=== PATIENT | female | born 1950 | race Caucasian/White ===

== ENCOUNTER 2017-03-17 08:48 | Emergency (ER) | payer OTHER, BC ==
[~2017-03-17] VITALS: Ht 167.6 cm; Wt 66.0 kg
[2017-03-17 09:36] LABS: HEMATOCRIT 43.5 % (36.0-46.0); MCH 29.4 PG (29.0-34.0); MCHC 33.3 G/DL (30.0-36.0); MCV 88.2 FL (83-99); MEAN PLAT.VOLUME 10.2 uM^3 (9.5-12.4); PLATELET COUNT 208 K/uL (156-360); RBC DIS.WIDTH-CV 13.8 % (11.8-14.6); RBC DIS.WIDTH-SD 44.7 % (39-53); RED BLOOD COUNT 4.93 M/uL (3.80-5.20); WHITE BLOOD COUNT 5.7 K/uL (4.1-10.2)
[2017-03-17 09:49] LABS: CHLORIDE 108 mEq/L (99-109); POTASSIUM 4.6 mEq/L (3.7-5.4); SODIUM 143 mEq/L (136-147)
[2017-03-17 09:51] LABS: GLUCOSE 96 mg/dL (70-99)
[2017-03-17 09:52] LABS: ANION GAP 10 MEQ/L (2-14)
[2017-03-17 09:55] LABS: GFR ESTIMATE (CALCULATED) > 59 mL/min/; UREA NITROGEN (BUN) 16 mg/dL (9-23)
[2017-03-17 09:58] LABS: TROP-I INTERPRETATION NEGATIVE; TROPONIN-I < 0.01 ng/mL (0.0-0.30)
[2017-03-17 11:56] LABS: TROP-I INTERPRETATION NEGATIVE; TROPONIN-I < 0.01 ng/mL (0.0-0.30)
[2017-03-17 12:31] VITALS: BP 136/73
== END 2017-03-17 12:32 | disposition home or self-care (01) ==
LOC: EME 08:48
PROVIDERS: Emergency Medicine
DX: R07.89 Other chest pain (principal); Z87.891 Personal history of nicotine dependence
CPT/HCPCS: 71020; 80048; 84484; 85027; 93005; 99281; 99284

== ENCOUNTER 2017-05-10 07:41 | Emergency (ER) | payer OTHER, BC ==
[~2017-05-10] VITALS: Ht 167.6 cm; Wt 66.5 kg
[2017-05-10 08:27] LABS: EOSINOPHIL (%) 0.9 % (0-5); EOSINOPHIL COUNT 0.1 K/uL (0-0.3); HEMATOCRIT 41.8 % (36.0-46.0); IMMATURE GRANULOCYTE (%) 0.6 % (0.0-0.7); IMMATURE GRANULOCYTE COUNT 0.1 K/uL; INSTRUMENT ABS NEUTROPHIL CT 5.3 K/uL; LYMPHOCYTE COUNT 1.9 K/uL (1.0-2.8); MCHC 34.2 G/DL (30.0-36.0); MCV 84.8 FL (83-99); MEAN PLAT.VOLUME 9.7 uM^3 (9.5-12.4); MONOCYTE (%) 8.5 % (3-12); MONOCYTE COUNT 0.7 K/uL (0-0.8); NEUTROPHIL (%) 66.3 % (45-76); NEUTROPHIL COUNT 5.3 K/uL (1.8-6.4); PLATELET COUNT 240 K/uL (156-360); RBC DIS.WIDTH-CV 13.4 % (11.8-14.6); RBC DIS.WIDTH-SD 41.9 % (39-53); RED BLOOD COUNT 4.93 M/uL (3.80-5.20)
[2017-05-10 08:34] LABS: PROTHROMBIN TIME 10.5 SEC (10.2-12.9)
[2017-05-10 08:37] LABS: PTT 22.4 SEC (25-37)
[2017-05-10 08:56] LABS: ADD MIUA? YES; BILIRUBIN NEGATIVE; BLOOD NEGATIVE; COLOR YELLOW ((YELLOW)); GLUCOSE (STRIP) NEGATIVE; KETONES NEGATIVE; LEUKOCYTES SMALL; NITRITE NEGATIVE; PROTEIN (STRIP) 30; SPECIFIC GRAVITY 1.018 (1.000-1.030); UROBILINOGEN 0.2 MG/DL (0.2-1.0)
[2017-05-10 09:10] LABS: ALKALINE PHOSPHATASE 62 IU/L (3-129); ANION GAP 9 MEQ/L (2-14); CHLORIDE 107 MEQ/L (99-109); DIRECT BILIRUBIN 0.1 mg/dL (0.0-0.3); GFR ESTIMATE (CALCULATED) > 59 mL/min/; GLUCOSE 95 mg/dL (70-99); LIPASE 116 U/L (1.0-51.0); POTASSIUM 3.9 MEQ/L (3.7-5.4); SAMPLE HEMOLYSIS CHECK 0; SAMPLE ICTERIC CHECK 0; SAMPLE LIPEMIA CHECK 0; SODIUM 140 MEQ/L (136-147); TOTAL BILIRUBIN 0.7 MG/DL (0.0-1.0); UREA NITROGEN (BUN) 23 mg/dL (9-23)
[2017-05-10 09:11] LABS: TROP-I INTERPRETATION NEGATIVE; TROPONIN-I < 0.01 ng/mL (0.0-0.30)
[2017-05-10 09:19] LABS: BACTERIA RARE /HPF; EPITHELIAL CELLS RARE /HPF; MUCUS TRACE /LPF; RED BLOOD CELLS 0-5 /HPF (0-5); UCUL ADDED? YES
[2017-05-10] MEDS ORDERED: MIRALAX119 GM PO (10:21)
[2017-05-10] MEDS ORDERED: COLACE100 MG PO (10:21)
[2017-05-10 11:33] VITALS: BP 122/80
== END 2017-05-10 11:34 | disposition home or self-care (01) ==
LOC: EME 07:41
PROVIDERS: Emergency Medicine
DX: R10.32 Left lower quadrant pain (principal); K59.00 Constipation, unspecified; Z87.891 Personal history of nicotine dependence
CPT/HCPCS: 74177; 80048; 80076; 81003; 83605; 83690; 84484; 85025; 85610; 85730; 87086; 99281; 99284; J7030

== ENCOUNTER 2017-08-12 10:10 | Emergency (ER) | payer OTHER, BC ==
[~2017-08-12] VITALS: Ht 167.6 cm; Wt 70.9 kg
[~2017-08-12 10:10] MED LIST: COLACE100 MG PO; MIRALAX119 GM PO
[2017-08-12] MEDS ORDERED: VITAMIN D31000 UNI2 PO (10:52)
[2017-08-12] MEDS ORDERED: GLUCOSAMINE &1 EAC1 PO ×2 (10:53→10:54)
[2017-08-12] MEDS ORDERED: CALCIUM 500-VI1 EAC1 PO (10:53)
[2017-08-12] MEDS ORDERED: FISH OIL 1,2001 EAC3 PO (10:53)
[2017-08-12] MEDS ORDERED: FOSAMAX5 MG PO (10:55)
[2017-08-12] MEDS ORDERED: RANITIDINE HCL75 MG PO (10:55)
[2017-08-12] MEDS ORDERED: ASPIR 8181 M1 PO (10:56)
[2017-08-12] MEDS ORDERED: FOSAMAX70 MG PO (10:57)
[2017-08-12 11:56] LABS: EOSINOPHIL (%) 1.2 % (0-5); EOSINOPHIL COUNT 0.1 K/uL (0-0.3); HEMATOCRIT 40.5 % (36.0-46.0); IMMATURE GRANULOCYTE (%) 0.3 % (0.0-0.7); LYMPHOCYTE COUNT 1.1 K/uL (1.0-2.8); MCH 29.1 PG (29.0-34.0); MCHC 33.1 G/DL (30.0-36.0); MCV 87.9 FL (83-99); MEAN PLAT.VOLUME 10.1 uM^3 (9.5-12.4); MONOCYTE (%) 9.1 % (3-12); MONOCYTE COUNT 0.5 K/uL (0-0.8); NEUTROPHIL (%) 69.9 % (45-76); PLATELET COUNT 220 K/uL (156-360); RBC DIS.WIDTH-CV 13.3 % (11.8-14.6); RED BLOOD COUNT 4.61 M/uL (3.80-5.20); WHITE BLOOD COUNT 5.7 K/uL (4.1-10.2)
[2017-08-12 12:07] LABS: CHLORIDE 107 mEq/L (99-109); POTASSIUM 4.3 mEq/L (3.7-5.4); SODIUM 141 mEq/L (136-147)
[2017-08-12 12:08] LABS: GLUCOSE 94 mg/dL (70-99)
[2017-08-12 12:10] LABS: ANION GAP 10 MEQ/L (2-14)
[2017-08-12 12:11] LABS: PROTHROMBIN TIME 11.3 SEC (10.2-12.9)
[2017-08-12 12:12] LABS: GFR ESTIMATE (CALCULATED) > 59 mL/min/
[2017-08-12 12:13] LABS: UREA NITROGEN (BUN) 17 mg/dL (9-23)
[2017-08-12 15:03] VITALS: BP 138/70
== END 2017-08-12 15:05 | disposition home or self-care (01) ==
LOC: EME 10:10
PROVIDERS: Emergency Medicine
DX: S06.6X0A Traumatic subarachnoid hemorrhage without loss of consciousness, initial encounter (principal); S00.83XA Contusion of other part of head, initial encounter; W10.9XXA Fall (on) (from) unspecified stairs and steps, initial encounter; Y92.009 Unspecified place in unspecified non-institutional (private) residence as the place of occurrence of the external cause; Z90.12 Acquired absence of left breast and nipple; Z85.3 Personal history of malignant neoplasm of breast; Z79.82 Long term (current) use of aspirin; Z87.891 Personal history of nicotine dependence
CPT/HCPCS: 70450; 70486; 72125; 80048; 85025; 85610; 99281; 99284

== ENCOUNTER → 2017-11-07 | Outpatient (CLI) | payer OTHER, BC ==
[~2017-11-07] MED LIST changes: +ASPIR 8181 M1 PO; +CALCIUM 500-VI1 EAC1 PO; +FISH OIL 1,2001 EAC3 PO; +FOSAMAX5 MG PO; +FOSAMAX70 MG PO; +GLUCOSAMINE &1 EAC1 PO; +RANITIDINE HCL75 MG PO; +VITAMIN D31000 UNI2 PO
== END | disposition home or self-care (01) ==
DX: M17.11 Unilateral primary osteoarthritis, right knee (principal); R26.2 Difficulty in walking, not elsewhere classified; M25.561 Pain in right knee; M25.661 Stiffness of right knee, not elsewhere classified; M62.81 Muscle weakness (generalized); Z74.1 Need for assistance with personal care
CPT/HCPCS: 97150 GO; 97161 GP; 97165 GO; 97530 GP; G8978 GP; G8979 GP; G8980 GP; G8987 GO; G8988 GO; G8989 GO

== ENCOUNTER 2017-12-03 21:59 | Inpatient (IN) | payer OTHER, BC ==
[~2017-12-03] VITALS: Ht 168.9 cm; Wt 71.5 kg
[~2017-12-03 21:59] MED LIST changes: +MULTI-VITAMIN-1 EACH PO; +ZANTAC75 M1 PO; +[UNRECOGNIZED DRUG - OTHER] PO
[2017-12-04 00:45] VITALS: BP 127/67
[2017-12-04 06:02] VITALS: BP 142/78
[2017-12-04 06:24] VITALS: BP 142/78
[2017-12-04 11:00] VITALS: BP 139/77
[2017-12-04 15:30] VITALS: BP 148/73
[2017-12-04 19:48] VITALS: BP 135/64
[2017-12-05 00:20] VITALS: BP 136/73
[2017-12-05 04:27] VITALS: BP 124/62
[2017-12-05 07:36] VITALS: BP 144/80
[2017-12-05 09:12] LABS: HEMATOCRIT 34.7 % (36.0-46.0); MCV 87.6 FL (83-99)
[2017-12-05 09:17] LABS: HEMOGLOBIN 11.8 G/DL (11.9-15.5)
[2017-12-05 09:43] LABS: ALBUMIN 3.7 G/DL (3.2-4.8); ALKALINE PHOSPHATASE 57 IU/L (3-129); ALT (GPT) 20 IU/L (3-49); AST (GOT) 15 IU/L (2-34); CHLORIDE 100 MEQ/L (99-109); CREATININE 0.5 MG/DL (0.6-1.3); GFR ESTIMATE (CALCULATED) > 59 mL/min/; GLUCOSE 132 mg/dL (70-99); POTASSIUM 4.7 MEQ/L (3.7-5.4); SODIUM 134 MEQ/L (136-147); TOTAL BILIRUBIN 0.6 MG/DL (0.0-1.0); TOTAL PROTEIN 6.4 G/DL (6.4-8.3); UREA NITROGEN (BUN) 16 mg/dL (9-23)
[2017-12-05 11:30] VITALS: BP 122/58
[2017-12-05 15:35] VITALS: BP 108/62
[2017-12-05 20:09] VITALS: BP 124/58
[2017-12-06] VITALS: BP 137/65
[2017-12-06 04:16] VITALS: BP 119/58
[2017-12-06 08:00] VITALS: BP 135/60
[2017-12-06] MEDS ORDERED: SENNA PLUS TAB1 EACH PO (09:01)
[2017-12-06] MEDS ORDERED: ELIQUIS2.5 MG PO (09:02)
[2017-12-06] MEDS ORDERED: CELECOXIB200 MG PO ×2 (09:02→09:10)
[2017-12-06] MEDS ORDERED: HYDROCODON-ACE1 EAC7 PO (09:02)
[2017-12-06] MEDS ORDERED: ONDANSETRON ODT4 MG PO (09:02)
[2017-12-06 12:10] VITALS: BP 128/78
== END 2017-12-06 14:50 | DRG 470 ==
LOC: ENRESERV 21:59 → 2SOUTH 12-04 05:22 → 3WEST 12-04 10:35 → 2SOUTH 12-04 12:57 → 3WEST 12-06 14:50
PROVIDERS: Nurse Practitioner Family
PROC: 0SRC0J9 Replacement of Right Knee Joint with Synthetic Substitute, Cemented, Open Approach (ICD-10-PCS; principal; 2017-12-04)
DX: M17.11 Unilateral primary osteoarthritis, right knee (principal); K21.9 Gastro-esophageal reflux disease without esophagitis; M81.0 Age-related osteoporosis without current pathological fracture; Z85.3 Personal history of malignant neoplasm of breast; Z90.10 Acquired absence of unspecified breast and nipple; Z88.0 Allergy status to penicillin; Z87.891 Personal history of nicotine dependence; Z79.82 Long term (current) use of aspirin
CPT/HCPCS: 80053; 85014; 85018; C1713; J1885; J2250; J2795; J3010; J7050; J7120

== ENCOUNTER 2018-04-19 20:00 | Inpatient (IN) | payer OTHER, BC ==
[~2018-04-19] VITALS: Ht 167.6 cm; Wt 72.0 kg
[~2018-04-19 20:00] MED LIST changes: +CELECOXIB200 MG PO; +ELIQUIS2.5 MG PO; +HYDROCODON-ACE1 EAC7 PO; +ONDANSETRON ODT4 MG PO; +SENNA PLUS TAB1 EACH PO
[2018-04-19 20:43] LABS: HEMATOCRIT 40.2 % (36.0-46.0); HEMOGLOBIN 13.7 G/DL (11.9-15.5); MCHC 34.1 G/DL (30.0-36.0); PLATELET COUNT 221 K/uL (156-360); RBC DIS.WIDTH-CV 15.2 % (11.8-14.6); RED BLOOD COUNT 4.73 M/uL (3.80-5.20); WHITE BLOOD COUNT 12.5 K/uL (4.1-10.2)
[2018-04-19 21:01] LABS: CHLORIDE 103 mEq/L (99-109); POTASSIUM 3.7 mEq/L (3.7-5.4); SODIUM 140 mEq/L (136-147)
[2018-04-19 21:02] LABS: MAGNESIUM 2.3 mg/dL (1.3-2.7)
[2018-04-19 21:03] LABS: GLUCOSE 124 mg/dL (70-99)
[2018-04-19 21:05] LABS: TROP-I INTERPRETATION NEGATIVE; TROPONIN-I 0.01 ng/mL (0.0-0.30)
[2018-04-19 21:07] LABS: CREATININE 0.8 mg/dL (0.6-1.3); GFR ESTIMATE (CALCULATED) > 59 mL/min/
[2018-04-19 21:08] LABS: UREA NITROGEN (BUN) 20 mg/dL (9-23)
[2018-04-19 22:11] LABS: BASOPHIL (%) 0.3 % (0-1); EOSINOPHIL (%) 0.7 % (0-5); EOSINOPHIL COUNT 0.1 K/uL (0-0.3); IMMATURE GRANULOCYTE (%) 0.3 % (0.0-0.7); LYMPHOCYTE (%) 21.6 % (15-42); LYMPHOCYTE COUNT 2.6 K/uL (1.0-2.8); MONOCYTE (%) 8.4 % (3-12); NEUTROPHIL (%) 68.7 % (45-76); NEUTROPHIL COUNT 8.4 K/uL (1.8-6.4)
[2018-04-20 01:24] LABS: ALBUMIN 3.9 g/dL (3.2-4.8)
[2018-04-20 01:27] LABS: TOTAL PROTEIN 7.1 g/dL (6.4-8.3)
[2018-04-20 01:28] LABS: TOTAL BILIRUBIN 1.3 mg/dL (0.0-1.0)
[2018-04-20 01:29] LABS: ALKALINE PHOSPHATASE 91 IU/L (3-129)
[2018-04-20 01:32] LABS: AST (GOT) 530 IU/L (2-34); DIRECT BILIRUBIN 0.7 mg/dL (0.0-0.3)
[2018-04-20 01:33] LABS: ALT (GPT) 407 IU/L (3-49)
[2018-04-20 03:09] VITALS: BP 105/54
[2018-04-20 03:11] LABS: LIPASE 5465 U/L (1.0-51.0)
[2018-04-20 07:49] VITALS: BP 108/57
[2018-04-20 08:43] LABS: HEMATOCRIT 36.1 % (36.0-46.0); HEMOGLOBIN 12.2 G/DL (11.9-15.5); MCH 28.9 PG (29.0-34.0); MCHC 33.8 G/DL (30.0-36.0); MCV 85.5 FL (83-99); PLATELET COUNT 181 K/uL (156-360); RBC DIS.WIDTH-CV 15.8 % (11.8-14.6); RBC DIS.WIDTH-SD 49.1 % (39-53); RED BLOOD COUNT 4.22 M/uL (3.80-5.20); WHITE BLOOD COUNT 19.1 K/uL (4.1-10.2)
[2018-04-20 11:48] VITALS: BP 117/55
[2018-04-20 12:01] LABS: ALKALINE PHOSPHATASE 109 IU/L (3-129); ALT (GPT) 613 IU/L (3-49); AST (GOT) 442 IU/L (2-34); CHLORIDE 105 MEQ/L (99-109); CREATININE 0.9 MG/DL (0.6-1.3); GFR ESTIMATE (CALCULATED) > 59 mL/min/; GLUCOSE 117 mg/dL (70-99); HDL CHOLESTEROL 48 MG/DL (Desirable>=50); LDL CHOLESTEROL 113 mg/dL (Desirable<100); NON-HDL CHOLESTEROL 126 mg/dL (Desirable<160); POTASSIUM 4.3 MEQ/L (3.7-5.4); SODIUM 141 MEQ/L (136-147); TOTAL BILIRUBIN 4.5 MG/DL (0.0-1.0); TOTAL CHOLESTEROL 174 mg/dL (Desirable<200); TOTAL PROTEIN 5.3 G/DL (6.4-8.3); TRIGLYCERIDES 63 MG/DL (Normal: <150); UREA NITROGEN (BUN) 19 mg/dL (9-23)
[2018-04-20 12:39] LABS: LIPASE 2046 U/L (1.0-51.0)
[2018-04-20 15:33] VITALS: BP 131/63
[2018-04-20 20:00] VITALS: BP 129/61
[2018-04-21 03:56] VITALS: BP 108/56
[2018-04-21 05:46] LABS: BASOPHIL (%) 0.2 % (0-1); EOSINOPHIL (%) 0.6 % (0-5); EOSINOPHIL COUNT 0.1 K/uL (0-0.3); HEMATOCRIT 33.7 % (36.0-46.0); HEMOGLOBIN 11.1 G/DL (11.9-15.5); IMMATURE GRANULOCYTE (%) 0.6 % (0.0-0.7); LYMPHOCYTE (%) 4.8 % (15-42); LYMPHOCYTE COUNT 0.7 K/uL (1.0-2.8); MCH 28.7 PG (29.0-34.0); MCHC 32.9 G/DL (30.0-36.0); MCV 87.1 FL (83-99); MONOCYTE (%) 5.1 % (3-12); MONOCYTE COUNT 0.7 K/uL (0-0.8); NEUTROPHIL (%) 88.7 % (45-76); NEUTROPHIL COUNT 12.8 K/uL (1.8-6.4); PLATELET COUNT 165 K/uL (156-360); RBC DIS.WIDTH-CV 16.5 % (11.8-14.6); RBC DIS.WIDTH-SD 52.2 % (39-53); RED BLOOD COUNT 3.87 M/uL (3.80-5.20); WHITE BLOOD COUNT 14.4 K/uL (4.1-10.2)
[2018-04-21 06:07] LABS: ALBUMIN 2.7 G/DL (3.2-4.8); ALKALINE PHOSPHATASE 112 IU/L (3-129); ALT (GPT) 417 IU/L (3-49); AMYLASE 79 IU/L (1-118); CHLORIDE 111 MEQ/L (99-109); CREATININE 0.7 MG/DL (0.6-1.3); GFR ESTIMATE (CALCULATED) > 59 mL/min/; LIPASE 63 U/L (1.0-51.0); SODIUM 144 MEQ/L (136-147); TOTAL BILIRUBIN 5.3 MG/DL (0.0-1.0); TOTAL PROTEIN 5.1 G/DL (6.4-8.3); UREA NITROGEN (BUN) 18 mg/dL (9-23)
[2018-04-21 06:14] LABS: AST (GOT) 192 IU/L (2-34); GLUCOSE 67 mg/dL (70-99); POTASSIUM 3.3 MEQ/L (3.7-5.4)
[2018-04-21 08:00] VITALS: BP 117/62
[2018-04-21 08:37] LABS: C-REACTIVE PROTEIN 137.9 MG/L (0-10); DIRECT BILIRUBIN 3.9 mg/dL (0.0-0.3); GAMMA-GT 203 IU/L (4-73)
[2018-04-21 12:46] VITALS: BP 143/78
[2018-04-22 00:32] VITALS: BP 141/72
[2018-04-22 05:01] VITALS: BP 141/70
[2018-04-22 07:15] VITALS: BP 143/69
[2018-04-22 07:34] LABS: HEMATOCRIT 33.5 % (36.0-46.0); HEMOGLOBIN 11.3 G/DL (11.9-15.5); MCH 28.7 PG (29.0-34.0); MCHC 33.7 G/DL (30.0-36.0); PLATELET COUNT 164 K/uL (156-360); RBC DIS.WIDTH-CV 16.2 % (11.8-14.6); RBC DIS.WIDTH-SD 50.6 % (39-53); RED BLOOD COUNT 3.94 M/uL (3.80-5.20); WHITE BLOOD COUNT 8.9 K/uL (4.1-10.2)
[2018-04-22 07:59] LABS: ALBUMIN 2.8 G/DL (3.2-4.8); ALKALINE PHOSPHATASE 116 IU/L (3-129); ALT (GPT) 323 IU/L (3-49); AST (GOT) 107 IU/L (2-34); CHLORIDE 112 MEQ/L (99-109); CREATININE 0.5 MG/DL (0.6-1.3); GFR ESTIMATE (CALCULATED) > 59 mL/min/; LIPASE 33 U/L (1.0-51.0); POTASSIUM 3.6 MEQ/L (3.7-5.4); SODIUM 142 MEQ/L (136-147); TOTAL PROTEIN 5.6 G/DL (6.4-8.3); UREA NITROGEN (BUN) 7 mg/dL (9-23)
[2018-04-22 08:00] LABS: GLUCOSE 149 mg/dL (70-99); TOTAL BILIRUBIN 3.2 MG/DL (0.0-1.0)
[2018-04-22 12:06] VITALS: BP 137/76
[2018-04-22 16:37] VITALS: BP 144/68
[2018-04-22 20:44] VITALS: BP 154/73
[2018-04-23] VITALS: BP 104/51; BP 148/70
[2018-04-23 04:00] VITALS: BP 155/75
[2018-04-23 07:16] LABS: HEMATOCRIT 32.1 % (36.0-46.0); MCH 28.8 PG (29.0-34.0); MCHC 34.3 G/DL (30.0-36.0); PLATELET COUNT 166 K/uL (156-360); RBC DIS.WIDTH-CV 16.2 % (11.8-14.6); RBC DIS.WIDTH-SD 50.1 % (39-53); RED BLOOD COUNT 3.82 M/uL (3.80-5.20); WHITE BLOOD COUNT 5.5 K/uL (4.1-10.2)
[2018-04-23 07:46] LABS: ALBUMIN 2.7 G/DL (3.2-4.8); ALKALINE PHOSPHATASE 105 IU/L (3-129); ALT (GPT) 241 IU/L (3-49); CHLORIDE 114 MEQ/L (99-109); CREATININE 0.5 MG/DL (0.6-1.3); GFR ESTIMATE (CALCULATED) > 59 mL/min/; GLUCOSE 143 mg/dL (70-99); LIPASE 46 U/L (1.0-51.0); MAGNESIUM 1.8 mg/dl (1.3-2.7); POTASSIUM 3.7 MEQ/L (3.7-5.4); SODIUM 143 MEQ/L (136-147); UREA NITROGEN (BUN) 5 mg/dL (9-23)
[2018-04-23 07:47] LABS: AST (GOT) 56 IU/L (2-34); TOTAL BILIRUBIN 2.3 MG/DL (0.0-1.0)
[2018-04-23 11:24] VITALS: BP 133/70
[2018-04-23 15:43] VITALS: BP 148/70
[2018-04-23 19:38] VITALS: BP 155/69
[2018-04-23 23:48] VITALS: BP 169/82
[2018-04-24 07:10] VITALS: BP 153/84
[2018-04-24] MEDS ORDERED: LEVAQUIN500 MG PO ×3 (14:41→18:11)
[2018-04-24] MEDS ORDERED: FLAGYL500 MG PO ×2 (14:41→18:10)
== END 2018-04-24 15:20 | disposition home or self-care (01) | DRG 439 ==
LOC: EXP 20:00 → EME 20:00 → EDOF 04-20 00:59 → ENRESERV 04-20 01:07 → 4SOUTH 04-20 02:55
PROVIDERS: Hospitalist; Internal Medicine; Internal Medicine Gastroenterology
DX: K85.90 Acute pancreatitis without necrosis or infection, unspecified (principal); K57.12 Diverticulitis of small intestine without perforation or abscess without bleeding; R79.89 Other specified abnormal findings of blood chemistry; Z96.651 Presence of right artificial knee joint; Z85.820 Personal history of malignant melanoma of skin; Z90.12 Acquired absence of left breast and nipple; Z85.3 Personal history of malignant neoplasm of breast; Z90.49 Acquired absence of other specified parts of digestive tract; R79.1 Abnormal coagulation profile; I25.10 Atherosclerotic heart disease of native coronary artery without angina pectoris; Z92.21 Personal history of antineoplastic chemotherapy; K21.9 Gastro-esophageal reflux disease without esophagitis; I70.0 Atherosclerosis of aorta; T45.1X5S Adverse effect of antineoplastic and immunosuppressive drugs, sequela; G62.9 Polyneuropathy, unspecified; M19.90 Unspecified osteoarthritis, unspecified site; Z79.01 Long term (current) use of anticoagulants; Z79.83 Long term (current) use of bisphosphonates
CPT/HCPCS: 71046; 71275; 74176; 74181; 76705; 80048; 80053; 80061; 80076; 82150; 82248; 82948; 82977; 83690; 83735; 84484; 85025; 85027; 86140; 86301 90; 93005; 94799; 99281; 99285; C9113; J1170; J1644; J1885; J1956; J2405; J2765; J3010; J3480; J7030; J7042; S0028; S0030

== ENCOUNTER 2018-05-01 15:55 | Emergency (ER) | payer OTHER, BC ==
[~2018-05-01] VITALS: Ht 167.6 cm; Wt 67.5 kg
[~2018-05-01 15:55] MED LIST changes: +FLAGYL500 MG PO; +LEVAQUIN500 MG PO
[2018-05-01 16:49] LABS: BASOPHIL (%) 0.4 % (0-1); EOSINOPHIL (%) 1.2 % (0-5); EOSINOPHIL COUNT 0.1 K/uL (0-0.3); HEMATOCRIT 40.4 % (36.0-46.0); IMMATURE GRANULOCYTE (%) 0.3 % (0.0-0.7); LYMPHOCYTE (%) 25.4 % (15-42); LYMPHOCYTE COUNT 1.9 K/uL (1.0-2.8); MCH 29.7 PG (29.0-34.0); MCHC 34.4 G/DL (30.0-36.0); MCV 86.3 FL (83-99); MONOCYTE (%) 8.8 % (3-12); MONOCYTE COUNT 0.7 K/uL (0-0.8); NEUTROPHIL (%) 63.9 % (45-76); NEUTROPHIL COUNT 4.8 K/uL (1.8-6.4); RBC DIS.WIDTH-CV 15.8 % (11.8-14.6); RBC DIS.WIDTH-SD 49.5 % (39-53); WHITE BLOOD COUNT 7.5 K/uL (4.1-10.2)
[2018-05-01 16:53] LABS: ALBUMIN 4.1 g/dL (3.2-4.8); CHLORIDE 103 mEq/L (99-109); POTASSIUM 4.1 mEq/L (3.7-5.4); SODIUM 138 mEq/L (136-147)
[2018-05-01 16:55] LABS: GLUCOSE 124 mg/dL (70-99)
[2018-05-01 16:56] LABS: TOTAL PROTEIN 7.8 g/dL (6.4-8.3)
[2018-05-01 16:57] LABS: TOTAL BILIRUBIN 0.9 mg/dL (0.0-1.0)
[2018-05-01 16:58] LABS: HEMOGLOBIN 13.9 G/DL (11.9-15.5); RED BLOOD COUNT 4.68 M/uL (3.80-5.20)
[2018-05-01 16:59] LABS: ALKALINE PHOSPHATASE 100 IU/L (3-129); CREATININE 0.8 mg/dL (0.6-1.3); GFR ESTIMATE (CALCULATED) > 59 mL/min/; PLATELET COUNT 481 K/uL (156-360)
[2018-05-01 17:00] LABS: UREA NITROGEN (BUN) 15 mg/dL (9-23)
[2018-05-01 17:01] LABS: AST (GOT) 20 IU/L (2-34)
[2018-05-01 17:02] LABS: ALT (GPT) 57 IU/L (3-49); LIPASE 37 U/L (1.0-51.0)
[2018-05-01 17:07] LABS: APPEARANCE CLEAR ((CLEAR)); BILIRUBIN NEGATIVE; BLOOD NEGATIVE; COLOR YELLOW ((YELLOW)); GLUCOSE (STRIP) NEGATIVE; KETONES NEGATIVE; LEUKOCYTES NEGATIVE; NITRITE NEGATIVE; PROTEIN (STRIP) NEGATIVE; UCUL ADDED? NO; UROBILINOGEN 0.2 MG/DL (0.2-1.0)
[2018-05-01 18:48] VITALS: BP 136/76
== END 2018-05-01 18:50 | disposition home or self-care (01) ==
LOC: EME 15:55
PROVIDERS: Physician Assistant
DX: R10.32 Left lower quadrant pain (principal); Z87.891 Personal history of nicotine dependence; Z86.73 Personal history of transient ischemic attack (TIA), and cerebral infarction without residual deficits; Z90.12 Acquired absence of left breast and nipple; Z88.0 Allergy status to penicillin
CPT/HCPCS: 74177; 80053; 81003; 83690; 85025; 99281; 99285; J1885; J7030